=== PATIENT | female | born 1985 | race Asian ===

== ENCOUNTER 2017-09-20 08:30 | Outpatient (CLI) | payer OTHER ==
[2017-09-20 08:56] LABS: BASOPHILS # (AUTO) 0.1 K/uL (0.00-0.22); BASOPHILS % (AUTO) 2.5 % (0.0-2.0); EOSINOPHILS # (AUTO) 0.1 K/uL (0-0.4); EOSINOPHILS % (AUTO) 2.7 % (0.0-4.0); HEMATOCRIT 38.8 % (36-48); HEMOGLOBIN 13.2 g/dL (12.0-16.0); LYMPHOCYTES # (AUTO) 2.1 K/uL (2.5-16.5); MEAN CORPUSCULAR HEMOGLOBIN 31 pg (27-31); MEAN CORPUSCULAR HGB CONC 34 g/dL (33-37); MEAN CORPUSCULAR VOLUME 92 fL (80-94); MONOCYTES # (AUTO) 0.2 K/uL (0.8-1.0); NEUTROPHILS # (AUTO) 2.5 K/uL (1.8-7.7); NEUTROPHILS % (AUTO) 47.8 % (42.2-75.2); PLATELET COUNT (AUTO) 185 K/uL (140-450); RED BLOOD CELL COUNT(AUTO) 4.21 MIL/uL (4.20-5.40); RED CELL DISTRIBUTION WIDTH 11.4 % (11.6-13.7); WHITE BLOOD COUNT (AUTO) 4.9 K/uL (4.8-10.8)
[2017-09-20 11:15] LABS: ANION GAP 16.2 (8-16); CARBON DIOXIDE 24.2 mmol/L (21-32); CHOL/HDL RATIO 3.7 (1-4.5); CREATININE 0.7 mg/dL (0.6-1.3); POTASSIUM 4.4 mmol/L (3.5-5.1); THYROID STIMULATING HORMONE 2.31 uIU/mL (0.34-3.74); TOTAL BILIRUBIN 0.8 mg/dL (0.0-1.0)
== END 2017-09-20 20:11 | disposition home or self-care (01) ==
LOC: MLB 08:30
DX: Z01.419 Encounter for gynecological examination (general) (routine) without abnormal findings (principal)
CPT/HCPCS: 36415; 80053; 82306; 82607; 83036; 84443; 85025

== ENCOUNTER 2017-12-20 09:03 | Outpatient (CLI) | payer OTHER ==
[2017-12-20 09:27] LABS: BASOPHILS # (AUTO) 0.1 K/uL (0.00-0.22); BASOPHILS % (AUTO) 2.5 % (0.0-2.0); EOSINOPHILS # (AUTO) 0.1 K/uL (0-0.4); EOSINOPHILS % (AUTO) 2.3 % (0.0-4.0); HEMATOCRIT 38.1 % (36-48); HEMOGLOBIN 12.9 g/dL (12.0-16.0); LYMPHOCYTES # (AUTO) 1.7 K/uL (2.5-16.5); MEAN CORPUSCULAR HEMOGLOBIN 31 pg (27-31); MEAN CORPUSCULAR HGB CONC 34 g/dL (33-37); MEAN CORPUSCULAR VOLUME 91.3 fL (80-94); MONOCYTES # (AUTO) 0.2 K/uL (0.8-1.0); MONOCYTES % (AUTO) 3.7 % (1.7-9.3); NEUTROPHILS # (AUTO) 3.3 K/uL (1.8-7.7); NEUTROPHILS % (AUTO) 59.5 % (42.2-75.2); PLATELET COUNT (AUTO) 191 K/uL (140-450); RED BLOOD CELL COUNT(AUTO) 4.17 MIL/uL (4.20-5.40); RED CELL DISTRIBUTION WIDTH 10.9 % (11.6-13.7); WHITE BLOOD COUNT (AUTO) 5.4 K/uL (4.8-10.8)
[2017-12-20 09:44] LABS: ALBUMIN 3.9 g/dL (3.4-5.0); ANION GAP 12.2 (8-16); CARBON DIOXIDE 26.7 mmol/L (21-32); CHOL/HDL RATIO 3.3 (1-4.5); CREATININE 0.6 mg/dL (0.6-1.3); POTASSIUM 3.9 mmol/L (3.5-5.1); THYROID STIMULATING HORMONE 3.47 uIU/mL (0.34-3.74); TOTAL BILIRUBIN 0.7 mg/dL (0.0-1.0)
== END 2017-12-20 20:27 | disposition home or self-care (01) ==
LOC: MLB 09:03
PROVIDERS: ATTEND Internal Medicine Geriatric Medicine
DX: Z00.01 Encounter for general adult medical examination with abnormal findings (principal); E55.9 Vitamin D deficiency, unspecified
CPT/HCPCS: 36415; 80053; 82306; 83036; 84443; 85025; 86003

== ENCOUNTER 2018-03-08 11:49 | Emergency (ER) | payer OTHER ==
[~2018-03-08] VITALS: Ht 162.6 cm; Wt 63.5 kg
[2018-03-08 11:50] VITALS: BP 133/88
--- NOTE | 2018-03-08 11:55 | NUR ---
PATIENT AMBULATED TO BED 1 AT THIS TIME.
--- NOTE | 2018-03-08 11:55 | NUR ---
32 yo f bib self w/ severe menstrual cramping, had a cyst 2014. currently on period, day #5. denies fevers at this time, but reports she felt a little bit chilled prior to arrival. mild nause, no vomiting at this time. Pt reports that this pain is abnormal for her, and she has never had such severe cramping, which is why she would like to get evaluated, requesting an ultrasound be done. Pt aaox4. gcs 15. cms intact. rr even and unlabored. lungs bilaterally clear. abd soft, non-tender. Er MD Garcia evaluating pt at bedside at this time. safety precautions in place. pt needs met. will continue to monitor.
--- NOTE | 2018-03-08 12:36 | NUR ---
ultrasound at bedside at this time.
--- NOTE | 2018-03-08 12:48 | NUR ---
ultrasound leaving bedside at this time.
[2018-03-08 12:55] LABS: APPEARANCE,URINE CLEAR (CLEAR); BILIRUBIN,URINE NEGATIVE (NEGATIVE); BLOOD, URINE NEGATIVE (NEGATIVE); COLOR,URINE YELLOW (YELLOW); LEUKOCYTE ESTERASE ,URINE NEGATIVE (NEGATIVE); NITRITE, URINE NEGATIVE (NEGATIVE); UGLUCOSE NEGATIVE (NEGATIVE)
--- NOTE | 2018-03-08 13:23 | NUR ---
pt resting comfortably in [facility] at this time. vss. pt needs met. safety precautions in place. will continue to monitor.
[2018-03-08 14:08] VITALS: BP 116/57
== END 2018-03-08 14:09 | disposition home or self-care (01) ==
LOC: MED 11:49
DX: N94.6 Dysmenorrhea, unspecified (principal); R11.0 Nausea; R68.83 Chills (without fever)
CPT/HCPCS: 76817; 81003; 99285; Q0092

== ENCOUNTER 2018-04-04 15:07 | Outpatient (CLI) | payer OTHER ==
[2018-04-05 15:25] LABS: PROLACTIN 16.6 ng/mL (4.8-23.3)
== END 2018-04-04 17:32 | disposition home or self-care (01) ==
LOC: MLB 15:07
PROVIDERS: ATTEND Obstetrics & Gynecology
DX: N93.9 Abnormal uterine and vaginal bleeding, unspecified (principal); N97.9 Female infertility, unspecified
CPT/HCPCS: 36415; 83001; 83002; 84146; 84443